=== PATIENT | female | born 1995 | race Two or more races ===

== ENCOUNTER 2019-02-15 16:09 | Emergency (ER) | payer OTHER ==
[2019-02-15 16:20] VITALS: BP 121/76
== END 2019-02-15 17:02 | disposition left against medical advice (07) ==
LOC: ED 16:09
DX: Z53.21 Procedure and treatment not carried out due to patient leaving prior to being seen by health care provider (principal); M54.9 Dorsalgia, unspecified
CPT/HCPCS: 99281